=== PATIENT | male | born 1970 | race Caucasian/White ===

== ENCOUNTER 2023-07-11 08:23 | Observation (INO) | payer OTHER ==
[2023-07-11] MEDS: SODIUM CHLORIDE 0.9% 1,000 ML IV STA (08:44)
--- NOTE | 2023-07-11 08:46 | ED ---
General Adult HPI - General Chief complaint: Shortness of Breath Stated complaint: [place] Time Seen by Provider: 07/11/23 08:25 Source: patient, RN notes reviewed Mode of arrival: ambulatory Limitations: no limitations - History of Present Illness Initial comments: 52-year-old male presents emergency department via EMS from [facility] chief complaint shortness of breath. Patient has been exposed to multiple sick contacts. Patient states he does have COPD. Patient states has been wheezing, is having shortness of breath he has not take anything recent for his fever. Patient denies any nausea vomiting. He states his body aches are diffuse. Denies any similar cardiac history. Patient states he has been at [facility] for 1 week for opiate abuse. - Related Data Allergies Allergy/AdvReac Type Severity Reaction Status Date / Time Penicillins AdvReac Rash/Hives Verified 07/11/23 08:32 Review of Systems ROS Statement: Those systems with pertinent positive or pertinent negative responses have been documented in the HPI. ROS Other: All systems not noted in ROS Statement are negative. Past Medical History Past Medical History: Asthma Additional Past Medical History / Comment(s): COPD, History of Any Multi-Drug Resistant Organisms: None Reported Past Surgical History: No Surgical Hx Reported Past Psychological History: Anxiety, Bipolar, Depression Smoking Status: Current every day smoker Past Alcohol Use History: None Reported Past Drug Use History: Cocaine, Opiates General Exam Limitations: no limitations General appearance: alert, in no apparent distress Head exam: Present: atraumatic, normocephalic, normal inspection Eye exam: Present: normal appearance, PERRL, EOMI. Absent: scleral icterus, conjunctival injection, periorbital swelling ENT exam: Present: normal exam, normal oropharynx, mucous membranes moist Neck exam: Present: normal inspection, full ROM. Absent: tenderness, meningismus, lymphadenopathy Respiratory exam: Present: wheezes. Absent: normal lung sounds bilaterally, respiratory distress, rales, rhonchi, stridor Cardiovascular Exam: Present: regular rate, normal rhythm, normal heart sounds. Absent: systolic murmur, diastolic murmur, rubs, gallop, clicks GI/Abdominal exam: Present: soft, normal bowel sounds. Absent: distended, tend erness, guarding, rebound, rigid Neurological exam: Present: alert Skin exam: Present: warm, dry, intact, normal color. Absent: rash Course Vital Signs 07/11/23 07/11/23 07/11/23 08:25 08:35 09:52 Temperature 100.7 F H 98.9 F Pulse Rate 100 87 Respiratory 20 20 18 Rate Blood Pressure 121/78 117/66 O2 Sat by Pulse 91 L 90 L Oximetry EKG Findings - EKG Comments: EKG Findings:: EKG performed at 8: 27 sinus rhythm with rate 96 MS 120 QRS 83 QT/QTc 329/383 - EKG Results: EKG: interpreted by MARY Medical Decision Making - Medical Decision Making Was pt. sent in by a medical professional or institution (, PA, PHARMACOGENETICIST, urgent care, hospital, or prison...) When possible be specific @ -No Did you speak to anyone other than the patient for history (EMS, parent, family, police, friend...)? What history was obtained from this source @ -No Did you review nursing and triage notes (agree or disagree)? Why? @ -I reviewed and agree with nursing and triage notes Were old charts reviewed (outside hosp., previous admission, EMS record, old EKG, old radiological studies, urgent care reports/EKG's, prison records)? Report findings @ -No old charts were reviewed Differential Diagnosis (chest pain, altered mental status, abdominal pain women, abdominal pain men, vaginal bleeding, weakness, fever, dyspnea, syncope, headache, dizziness, GI bleed, back pain, seizure, CVA, palpatations, mental health, musculoskeletal)? @ -Differential Dyspnea: Coronary syndrome, arrhythmia, tamponade, asthma, COPD, pulmonary embolism, pneumonia, pneumothorax, pulmonary effusion, anaphylaxis, diabetic ketoacidosis, flailed chest, pulmonary contusion, diaphragmatic rupture, anemia, neuromuscular, this is not meant to be an all-inclusive list. COVID 19, RSV, influenza, pneumonia, acute bronchitis, URI, this list is not all inclusive EKG interpreted by me (3pts min.). @ -As above X-rays interpreted by me (1pt min.). @ -Chest x-ray shows multifocal pneumonia CT interpreted by me (1pt min.). @ -None done U/S interpreted by me (1pt. min.). @ -None done What testing was considered but not performed or refused? (CT, X-rays, U/S, labs)? Why? @ -None What meds were considered but not given or refused? Why? @ -None Did you discuss the management of the patient with other professionals (professionals i.e. , PA, PHARMACOGENETICIST, lab, RT, psych nurse, social service assistant, doper operator, teacher, ambulance officer, director of casework)? Give summary @ - for admission secondary to COPD exacerbation, hypoxia influenza a positive with multifocal viral pneumonia Was smoking cessation discussed for >3mins.? @ -No Was critical care preformed (if so, how long)? @ -No Were there social determinants of health that impacted care today? How? (Homel essness, low income, unemployed, alcoholism, drug addiction, transportation, low edu. Level, literacy, decrease access to med. care, penitentiary, rehab)? @ -No Was there de-escalation of care discussed even if they declined (Discuss DNR or withdrawal of care, Hospice)? DNR status @ -No What co-morbidities impacted this encounter? (DM, HTN, Smoking, COPD, CAD, Cancer, CVA, ARF, Chemo, Hep., AIDS, mental health diagnosis, sleep apnea, morbid obesity)? @ -COPD, asthma Was patient admitted / discharged? Hospital course, mention meds given and route, prescriptions, significant lab abnormalities, going to OR and other pertinent info. @ -Admitted patient is found to be influenza A positive multifocal pneumonia patient was started on Tamiflu, patient was given Solu-Medrol, DuoNeb treatments. Patient will be admitted for further treatment. Undiagnosed new problem with uncertain prognosis? @ -No Drug Therapy requiring intensive monitoring for toxicity (Heparin, Nitro, Insulin, Cardizem)? @ -No Were any procedures done? @ -No Diagnosis/symptom? @ -COPD exacerbation, influenza A positive Acute, or Chronic, or Acute on Chronic? @ -Acute Uncomplicated (without systemic symptoms) or Complicated (systemic symptoms)? @ -Complicated Side effects of treatment? @ -No Exacerbation, Progression, or Severe Exacerbation? @ -No Poses a threat to life or bodily function? How? (Chest pain, [place], [place], pneumonia, PE, COPD, DKA, ARF, appy, cholecystitis, CVA, Diverticulitis, Homicidal, Suicidal, threat to staff... and all critical care pts) @ -Yes COPD exacerbation, possible leading to respiratory failure - Lab Data Result diagrams: 07/11/23 08:43 07/11/23 08:43 Lab Results 07/11/23 07/11/23 07/11/23 Range/Units 08:43 08:43 08:43 WBC 4.9 (3.8-10.6) k/uL RBC 4.10 L (4.30-5.90) m/uL Hgb 12.9 L (13.0-17.5) gm/dL Hct 38.2 L (39.0-53.0) % MCV 93.4 (80.0-100.0) fL MCH 31.4 (25.0-35.0) pg MCHC 33.6 (31.0-37.0) g/dL RDW 14.3 (11.5-15.5) % Plt Count 152 (150-450) k/uL MPV 9.3 Sodium 129 L (137-145) mmol/L Potassium 4.2 (3.5-5.1) mmol/L Chloride 99 (98-107) mmol/L Carbon Dioxide 21 L (22-30) mmol/L Anion Gap 9 mmol/L BUN 17 (9-20) mg/dL Creatinine 0.48 L (0.66-1.25) mg/dL Est GFR (CKD-EPI)AfAm >90 (>60 ml/min/1.73 sqM) Est GFR (CKD-EPI)NonAf >90 (>60 ml/min/1.73 sqM) Glucose 123 H (74-99) mg/dL Calcium 8.2 L (8.4-10.2) mg/dL Total Bilirubin 1.2 (0.2-1.3) mg/dL AST 79 H (17-59) U/L ALT 223 H (4-49) U/L Alkaline Phosphatase 94 (38-126) U/L Total Protein 6.2 L (6.3-8.2) g/dL Albumin 3.2 L (3.5-5.0) g/dL Influenza Type A (PCR) Detected A (Not Detectd) Influenza Type B (PCR) Not Detected (Not Detectd) RSV (PCR) Not Detected (Not Detectd) SARS-CoV-2 (PCR) Not Detected (Not Detectd) Disposition Clinical Impression: COPD with acute exacerbation, Influenza A Disposition: ADMITTED IP TO THIS HOSP Condition: Fair Referrals: None,Stated [Primary Care Provider] - 1-2 days Time of Disposition: 10:13
[2023-07-11] MEDS: ACETAMINOPHEN TAB 500 MG TAB PO STA (08:47)
[2023-07-11] MEDS: methylPREDNISolone SOD SUCCI 125 MG/2 ML VIAL IV STA (08:47)
[2023-07-11 08:53] LABS: HCT 38.2 % (39.0-53.0); HGB 12.9 gm/dL (13.0-17.5); MCH 31.4 pg (25.0-35.0); MCHC 33.6 g/dL (31.0-37.0); MCV 93.4 fL (80.0-100.0); Mean Platelet Volume 9.3; Platelet Count 152 k/uL (150-450); RDW 14.3 % (11.5-15.5); WBC 4.9 k/uL (3.8-10.6)
[2023-07-11 09:06] LABS: ALT 223 U/L (4-49); AST 79 U/L (17-59); African American GFR (CKD) >90 (>60 ml/min/1.73 sqM); Albumin 3.2 g/dL (3.5-5.0); Alkaline Phosphatase 94 U/L (38-126); Anion Gap 9 mmol/L; Blood Urea Nitrogen 17 mg/dL (9-20); Calcium 8.2 mg/dL (8.4-10.2); Carbon Dioxide 21 mmol/L (22-30); Chloride 99 mmol/L (98-107); Glucose 123 mg/dL (74-99); Non-African American GFR(CKD) >90 (>60 ml/min/1.73 sqM); Potassium 4.2 mmol/L (3.5-5.1); Sodium 129 mmol/L (137-145); Total Bilirubin 1.2 mg/dL (0.2-1.3); Total Protein 6.2 g/dL (6.3-8.2)
--- NOTE | 2023-07-11 09:54 | XR ---
EXAMINATION TYPE: XR chest 2V DATE OF EXAM: 07/11/2023 9:26 AM CLINICAL INDICATION:Male, 52 years old with history of difficulty breathing; PH[facility] COMPARISON: None TECHNIQUE: XR chest 2V. Frontal and lateral views of the chest.. FINDINGS: Lines/Tubes/Devices: EKG leads and other extraneous densities overlie the chest. Heart/mediastinum: Heart size is normal. Mediastinum appears normal. Pulmonary vascularity: Not increased, Lungs/Pleura: Lungs appear mildly hyperinflated with coarsening of the interstitium which may suggest background emphysema/COPD. There are multifocal patchy nodular opacities bilaterally, mostly in the mid to lower lung zones. Costophrenic angles are relatively sharp. No pneumothorax is shown. Cannot e xclude hilar lesions. Musculoskeletal: No acute osseous abnormality demonstrated in the limits of the exam. Mild degenerat antonella changes. Small rounded sclerotic focus projects over the right humeral head. Remote appearing rig ht rib mild deformity. Other findings: None. IMPRESSION: Multifocal patchy and nodular pulmonary opacities bilaterally, could represent infectious/inflammator y process and/or neoplasm. CT chest recommended.
[2023-07-11] MEDS: IPRATROPIUM-ALBUTEROL 3 ML NEB INHALATION STA (10:13)
[2023-07-11] MEDS ORDERED: IPRATROPIUM-ALBUTEROL 3 ML NEB INHALATION PRN (10:14)
[2023-07-11 10:27] LABS: Band Neutrophils % 13 %; Lymphocytes # (M) 0.34 k/uL (1.0-4.8); Metamyelocytes # (M) 0.05 k/uL (0); Metamyelocytes % 1 %; Monocytes # (M) 0.15 k/uL (0-1.0); Neutrophils % (M) 77 %; Nucleated Red Blood Cells 0 /100 WBC (0-0); Total Cells Counted 200
[2023-07-11 10:28] LABS: RBC Morphology Normal
[2023-07-11] MEDS: IPRATROPIUM-ALBUTEROL 3 ML NEB INHALATION SCH (12:13)
[2023-07-11] MEDS: OSELTAMIVIR 75 MG CAP PO STA (12:44)
[2023-07-11] MEDS ORDERED: RX INFO: IV CONTRAST WAS GIVEN 1 EACH MISC MISCELLANE PRN (14:09)
[2023-07-11] MEDS: AZITHROMYCIN 500 MG in SODIUM CHLORIDE 0.9% 250 ML IVPB SCH (14:54)
[2023-07-11] MEDS: methylPREDNISolone SOD SUCCI 125 MG/2 ML VIAL IV SCH (16:22)
--- NOTE | 2023-07-11 17:59 | P.HPIM ---
History of Present Illness H&P Date: 07/11/23 Chief Complaint: dyspnea 52-year-old male with medical history of COPD, active smoker, opiate abuse, asthma, presented for evaluation of dyspnea. Patient says that he started to experience shortness of breath approximately 3 days ago and then started develop fevers, chills as well as increased work of breathing in the last 24 hours. Patient does have a history of COPD and only takes rescue inhaler at home, does not follow with a telephone operator receptionist. He reports having exposure to multiple sick contacts recently. He further endorses myalgias. In the emergency room, patient was afebrile, 120/70, heart rate 80, 97% on 2 L of nasal cannula. CBC shows mild anemia to 12.9. Basic metabolic panel shows sodium of 129, CO2 of 21. Liver function test show AST of 79, ALT of 223. Influenzinum a was positive, influenza B was negative, RSV was negative, COVID was negative. EKG demonstrated normal sinus rhythm with left axis deviation, low voltage EKG. Chest x-ray demonstrates findings of diffuse pulmonary infiltrates. CT of the chest redemonstrates findings of diffuse pulmonary infiltrates. All Systems reviewed and pertinent positives and negatives noted in HPI, all other symptoms are negative Gen: in no apparent distress, resting comfortably in bed Eyes: PERRL, no scleral injection or icterus HENT: normocephalic, atraumatic, good hearing acuity, moist mucous membranes Neck: no tracheal deviation, full range of motion Resp: good air exchange, breathing comfortably with no accessory muscle use, no tactile fremitus, diffuse wheezing CVS: good distal perfusion x 4, no pitting edema GI: soft, NTTP, ND, no hepatosplenomegaly : no suprapubic tenderness, no CVAT, licea catheter not present MSK: no clubbing, no cyanosis, no noted contractures of extremities Skin: no noted rashes, petechiae; temperature of skin is appropriate Neuro: moving all extremities without signs of weakness, CN II-XII intact Psych: cooperative, euthymic mood, insight and judgment intact Labs and imaging as above Assessment/plan: Acute Hypoxemic Respiratory Failure Asthma/COPD Exacerbation Influenza A -admit to observation -pulmonology consult -rogersbs QID + PRN -tamiflu -solumedrol Opiate Abuse -encourage patient to have his suboxone from home brought in Active Smoker -nicotine lozenges PRN Pt is Full Code Past Medical History Past Medical History: Asthma Additional Past Medical History / Comment(s): COPD, History of Any Multi-Drug Resistant Organisms: None Reported Past Surgical History: No Surgical Hx Reported Past Psychological History: Anxiety, Bipolar, Depression Smoking Status: Current every day smoker Past Alcohol Use History: None Reported Past Drug Use History: Cocaine, Opiates Medications and Allergies Home Medications Medication Instructions Recorded Confirmed Type Acetaminophen Tab [Tylenol] 650 mg PO Q4H PRN 07/11/23 07/11/23 History Albuterol Sulfate [Ventolin HFA] 2 puff INHALATION RT-QID PRN 07/11/23 07/11/23 History Buprenorphine HCl/Naloxone HCl 1 film SL BID 07/11/23 07/11/23 History [Suboxone 8 mg-2 mg Sl Film] Calcium/Magnesium/Zinc/Vitamin D 1 tab PO TID PRN 07/11/23 07/11/23 History Chlorpheniramine Maleate 4 mg PO Q4H PRN 07/11/23 07/11/23 History [Chlor-Trimeton] Docusate [Colace] 100 mg PO BID PRN 07/11/23 07/11/23 History Hyoscyamine Sulfate [Levsin] 0.125 mg PO QID PRN 07/11/23 07/11/23 History Ibuprofen [Motrin Ib] 600 mg PO Q6H PRN 07/11/23 07/11/23 History Loperamide HCl [Imodium A-D] 4 mg PO QID PRN 07/11/23 07/11/23 History Mag Hydrox/Aluminum Hyd/Simeth 30 ml PO Q4H PRN 07/11/23 07/11/23 History [Mylanta Maximum Strength Liq] Magnesium Hydroxide [Milk of 2,400 mg PO BID PRN 07/11/23 07/11/23 History Magnesia] Melatonin 10 mg PO HS 07/11/23 07/11/23 History Multivitamins, Thera [Multivitamin 1 tab PO DAILY 07/11/23 07/11/23 History (formulary)] Thiamine [Vitamin B-1] 100 mg PO DAILY 07/11/23 07/11/23 History cloNIDine HCL [Catapres] 0.1 mg PO Q4H PRN 07/11/23 07/11/23 History guaiFENesin [guaiFENesin Oral 10 mg PO Q4H PRN 07/11/23 07/11/23 History Solution] ondansetron HCL [Zofran] 8 mg PO Q6H PRN 07/11/23 07/11/23 History traZODone HCL [Desyrel] 50 - 150 mg PO HS PRN 07/11/23 07/11/23 History Allergies Allergy/AdvReac Type Severity Reaction Status Date / Time Penicillins AdvReac Rash/Hives Verified 07/11/23 11:21 Physical Exam Osteopathic Statement: *. No significant issues noted on an osteopathic structural exam other than those noted in the History and Physical/Consult. Vitals: Vital Signs Temp Pulse Resp BP Pulse Ox 07/11/23 16:23 98.4 F 80 18 120/70 97 07/11/23 16:16 80 07/11/23 16:06 78 07/11/23 14:00 65 20 115/73 97 07/11/23 13:00 77 16 119/69 97 07/11/23 12:39 98.6 F 82 18 112/65 96 07/11/23 12:22 73 07/11/23 12:13 77 97 07/11/23 10:25 80 07/11/23 10:14 76 07/11/23 09:52 98.9 F 87 18 117/66 90 L 07/11/23 08:35 20 07/11/23 08:25 100.7 F H 100 20 121/78 91 L Intake and Output 07/11/23 07/11/23 07/11/23 06:59 14:59 22:59 Other: Weight 63.503 kg Results CBC & Chem 7: 07/11/23 08:43 07/11/23 08:43 Labs: Abnormal Lab Results - Last 24 Hours (Table) 07/11/23 07/11/23 07/11/23 Range/Units 08:43 08:43 08:43 RBC 4.10 L (4.30-5.90) m/uL Hgb 12.9 L (13.0-17.5) gm/dL Hct 38.2 L (39.0-53.0) % Lymphocytes # (Manual) 0.34 L (1.0-4.8) k/uL Metamyelocytes # (Man) 0.05 H (0) k/uL Sodium 129 L (137-145) mmol/L Carbon Dioxide 21 L (22-30) mmol/L Creatinine 0.48 L (0.66-1.25) mg/dL Glucose 123 H (74-99) mg/dL Calcium 8.2 L (8.4-10.2) mg/dL AST 79 H (17-59) U/L ALT 223 H (4-49) U/L Total Protein 6.2 L (6.3-8.2) g/dL Albumin 3.2 L (3.5-5.0) g/dL Influenza Type A (PCR) Detected A (Not Detectd)
--- NOTE | 2023-07-11 19:01 | CT ---
EXAMINATION TYPE: CT chest w con DATE OF EXAM: 07/11/2023 HISTORY: pneumonia, dyspnea CT DLP: 234.8 mGycm. Automated Exposure Control for Dose Reduction was Utilized. TECHNIQUE: CT scan of the thorax is performed following with IV Contrast, patient injected with 100 ml mL of Isovue 300. COMPARISON: CXR 07/11/2023 FINDINGS: LUNGS: There are dense bilateral consolidative opacities with air bronchograms in the posterior upper , mid, and lower lung zones consistent with focal pneumonia. MEDIASTINUM: Bilateral hilar and subcarinal mild adenopathy is noted, likely due to the multifocal bi lateral bronchopneumonia pattern. Thyroid and esophagus are unremarkable. Moderately prominent left and right coronary calcifications noted. No cardiomegaly or pericardial eff usion. MUSCULOSKELETAL: No focal aggressive skeletal process. SUBDIAPHRAGMATIC STRUCTURES: Mild splenomegaly noted. IMPRESSION: Multifocal bronchopneumonia; recommend 12 week follow-up CT Chest with contrast to prove resolution o f the findings. Prominent coronary calcifications. Mild splenomegaly noted.
[2023-07-11] MEDS: BUPRENORPHINE-NALOX 8-2 MG TAB 1 EACH TAB.SUBL SL SCH (20:42)
[2023-07-11] MEDS ORDERED: VANCOMYCIN IV PER PHARMACY 1 EACH MISC MISCELLANE PRN (22:07)
--- NOTE | 2023-07-11 22:27 | P.CNPUL ---
History of Present Illness Consult date: 07/11/23 Reason for consult: hypoxemia, pneumonia History of present illness: This is a 52-year-old male patient who came from [place] for some cough and shortness of breath and acute hypoxic respiratory failure. Patient was diagnosed having an acute influenza A infection. The patient lives in [place] and he has chronic opiate addiction with IV heroin and fentanyl. He was at [facility] for the past 7 days undergoing detoxification he was being treated with Suboxone 8 mg twice a day. The patient started getting ill, had diffuse bodyaches and chills and fatigue and tiredness and headaches along with some cough and increased shortness of breath. He is also felt feverish and he was reporting a temperature. He has multiple sick contacts at the rehab facility. He came into the emergency department and the patient tested positive for i nfluenza A, influenza B RSV and COVID-19 were negative. Blood work showed a white cell count of 4.9 and a hemoglobin of 12.9 and a platelet count of 152. Sodium is at 129, BUN is 17 with a creatinine of 0.48. Glucose 123. AST is 79, ALT is 223, bilirubin is 1.2. The CAT scan of the chest was completed and the patient has lower lobe bilateral consolidations consistent with pneumonia. In addition, there is mild bilateral hilar and subcarinal lymphadenopathy. Noted the consolidation are present in the posterior segments of the lower lobes bilaterally. The patient denies having any episodes of aspiration. No history of alcoholism. He is a chronic smoker. No altered mentation. Concerned that he is going to withdrawal from opiates during his current hospital stay. At the time of my evaluation, the patient was alert and awake and communicating. Review of Systems Constitutional: Reports fatigue, Reports fever, Reports weakness Eyes: denies as per HPI, denies blurred vision, denies bulging eye, denies decreased vision, denies diplopia, denies discharge, denies dry eye, denies irritation, denies itching, denies pain, denies photophobia, denies loss of peripheral vision, denies loss of vision, denies tunnel vision/blind spots Ears: deny: decreased hearing, ear discharge, earache, tinnitus Ears, nose, mouth and throat: Reports as per HPI Breasts: absent: as per HPI, gynecomastia Cardiovascular: Reports dyspnea on exertion Respiratory: Reports cough, Reports dyspnea Gastrointestinal: Reports as per HPI Genitourinary: Reports as per HPI Musculoskeletal: Reports as per HPI Musculoskeletal: absent: ankle pain, ankle stiffness, ankle swelling Integumentary: Reports as per HPI Neurological: Reports as per HPI Psychiatric: Reports as per HPI Endocrine: Reports as per HPI Hematologic/Lymphatic: Reports as per HPI Allergic/Immunologic: Reports as per HPI Past Medical History Past Medical History: Asthma Additional Past Medical History / Comment(s): COPD, History of Any Multi-Drug Resistant Organisms: None Reported Past Surgical History: No Surgical Hx Reported Past Psychological History: Anxiety, Bipolar, Depression Smoking Status: Current every day smoker Past Alcohol Use History: None Reported Past Drug Use History: Cocaine, Opiates Medications and Allergies Home Medications Medication Instructions Recorded Confirmed Type Acetaminophen Tab [Tylenol] 650 mg PO Q4H PRN 07/11/23 07/11/23 History Albuterol Sulfate [Ventolin HFA] 2 puff INHALATION RT-QID PRN 07/11/23 07/11/23 History Buprenorphine HCl/Naloxone HCl 1 film SL BID 07/11/23 07/11/23 History [Suboxone 8 mg-2 mg Sl Film] Calcium/Magnesium/Zinc/Vitamin D 1 tab PO TID PRN 07/11/23 07/11/23 History Chlorpheniramine Maleate 4 mg PO Q4H PRN 07/11/23 07/11/23 History [Chlor-Trimeton] Docusate [Colace] 100 mg PO BID PRN 07/11/23 07/11/23 History Hyoscyamine Sulfate [Levsin] 0.125 mg PO QID PRN 07/11/23 07/11/23 History Ibuprofen [Motrin Ib] 600 mg PO Q6H PRN 07/11/23 07/11/23 History Loperamide HCl [Imodium A-D] 4 mg PO QID PRN 07/11/23 07/11/23 History Mag Hydrox/Aluminum Hyd/Simeth 30 ml PO Q4H PRN 07/11/23 07/11/23 History [Mylanta Maximum Strength Liq] Magnesium Hydroxide [Milk of 2,400 mg PO BID PRN 07/11/23 07/11/23 History Magnesia] Melatonin 10 mg PO HS 07/11/23 07/11/23 History Multivitamins, Thera [Multivitamin 1 tab PO DAILY 07/11/23 07/11/23 History (formulary)] Thiamine [Vitamin B-1] 100 mg PO DAILY 07/11/23 07/11/23 History cloNIDine HCL [Catapres] 0.1 mg PO Q4H PRN 07/11/23 07/11/23 History guaiFENesin [guaiFENesin Oral 10 mg PO Q4H PRN 07/11/23 07/11/23 History Solution] ondansetron HCL [Zofran] 8 mg PO Q6H PRN 07/11/23 07/11/23 History traZODone HCL [Desyrel] 50 - 150 mg PO HS PRN 07/11/23 07/11/23 History Allergies Allergy/AdvReac Type Severity Reaction Status Date / Time Penicillins AdvReac Rash/Hives Verified 07/11/23 11:21 Physical Exam Vitals: Vital Signs Temp Pulse Resp BP Pulse Ox 07/11/23 19:46 88 07/11/23 19:39 85 07/11/23 18:30 85 18 112/72 98 07/11/23 18:22 82 22 108/68 96 07/11/23 16:23 98.4 F 80 18 120/70 97 07/11/23 16:16 80 07/11/23 16:06 78 07/11/23 14:00 65 20 115/73 97 07/11/23 13:00 77 16 119/69 97 07/11/23 12:39 98.6 F 82 18 112/65 96 07/11/23 12:22 73 07/11/23 12:13 77 97 07/11/23 10:25 80 07/11/23 10:14 76 07/11/23 09:52 98.9 F 87 18 117/66 90 L 07/11/23 08:35 20 07/11/23 08:25 100.7 F H 100 20 121/78 91 L Intake and Output 07/11/23 07/11/23 07/11/23 06:59 14:59 22:59 Other: Weight 63.503 kg The patient appeared well nourished and normally developed. The patient is currently on 3 L of oxygen nasal cannula. Breathing is calm and comfortable and the patient's breathing is nonlabored at this point in time. Vital signs as documented. Head exam is unremarkable. No scleral icterus or corneal arcus noted. Neck is without jugular venous distension, thyromegaly, or carotid bruits. Carotid upstrokes are brisk bilaterally. Lungs are clear to auscultation and percussion. Cardiac exam reveals the PMI to be normally sized and situated. Rhythm is regular. First and second heart sounds normal. No murmurs, rubs or gallops. Abdominal exam reveals normal bowel sounds, no masses, no organomegaly and no aortic enlargement. Extremities are nonedematous and both femoral and pedal pulses are normal. Examination of the skin revealed no evidence of significant rashes, suspicious appearing nevi or other concerning lesions. Neurologically, the patient is awake and alert and the patient does not have any focal neurological deficit. Cranial nerves are essentially intact. Results - Laboratory Findings CBC and BMP: 07/11/23 08:43 07/11/23 08:43 Abnormal lab findings: Abnormal Labs 07/11/23 07/11/23 07/11/23 08:43 08:43 08:43 RBC 4.10 L Hgb 12.9 L Hct 38.2 L Lymphocytes # (Manual) 0.34 L Metamyelocytes # (Man) 0.05 H Sodium 129 L Carbon Dioxide 21 L Creatinine 0.48 L Glucose 123 H Calcium 8.2 L AST 79 H ALT 223 H Total Protein 6.2 L Albumin 3.2 L Influenza Type A (PCR) Detected A - Diagnostic Findings Chest x-ray: image reviewed CT scan - chest: image reviewed Assessment and Plan Plan: Acute influenza A infection with possible viral pneumonia secondary influenza. The patient has lower lobe posterior segment bilateral pulmonary consolidation. Superinfection with bacterial pneumonia and/or aspiration cannot be completely ruled out. Patient checked positive for influenza A. Started on Tamiflu. S ymptoms started approximately 3 to 4 days ago. Acute hypoxic respiratory failure currently on 3 L of oxygen by nasal cannula Opiate addiction in the form of heroin and fentanyl, undergoing rehabilitation at [place] Chronic smoker Abnormal LFTs with elevation in ALT and to lesser extent AST. Normal bilirubin. Plan Titrate oxygen flow to maintain saturation above 90%. Continue Tamiflu Continue Rocephin and Zithromax DuoNeb updrafts Continue Suboxone 8 mg twice a day IV fluids Check hepatitis profile due to his previous history of IVDA and abnormal LFTs Will follow
[2023-07-11] MEDS: VANCOMYCIN 1,250 MG in SODIUM CHLORIDE 0.9% 250 ML IVPB STA (23:18)
[2023-07-11] MEDS: OSELTAMIVIR 75 MG CAP PO SCH (23:51)
[2023-07-12] MEDS: ACETAMINOPHEN TAB 325 MG TAB PO PRN (02:27)
[2023-07-12] MEDS: VANCOMYCIN 1,250 MG in SODIUM CHLORIDE 0.9% 250 ML IVPB SCH (07:04)
[2023-07-12 11:48] LABS: HCT 33.1 % (39.6-50.0); MCH 30.1 pg (27.0-32.0); MCHC 33.2 g/dL (32.0-37.0); MCV 90.7 FL (80.0-97.0); Mean Platelet Volume 12.4 FL (9.5-12.2); NRBC Per 100 WBC 0 X 10*3/uL (0.00-0.01); Platelet Count 152 X 10*3/uL (140-440); RBC 3.65 X 10*6/uL (4.40-5.60); RDW 15.6 % (11.5-14.5)
[2023-07-12 12:05] LABS: Blood Urea Nitrogen 17.1 mg/dL (9.0-27.0); Calcium 8.3 mg/dL (8.7-10.3); Carbon Dioxide 22.3 mmol/L (21.6-31.8); Chloride 99 mmol/L (96-109); Glucose 136 mg/dL (70-110); Magnesium 1.9 mg/dL (1.5-2.4); Potassium 4.5 mmol/L (3.5-5.5); Sodium 132 mmol/L (135-145)
--- NOTE | 2023-07-12 12:16 | XR ---
EXAMINATION TYPE: XR chest 1V DATE OF EXAM: 07/12/2023 12:03 PM CLINICAL INDICATION:Male, 52 years old with history of pneumonia; [facility] COMPARISON: Chest radiographs from 07/11/2023. TECHNIQUE: XR chest 1V Frontal view of the chest. FINDINGS: Lungs/Pleura: Similar multifocal airspace opacities. No evidence of pneumothorax or pleural effusion. Pulmonary vascularity: Unremarkable. Heart/mediastinum: Cardiomediastinal silhouette is unremarkable. Musculoskeletal: No acute osseous pathology. IMPRESSION: Similar multifocal airspace opacities.
[2023-07-12 12:40] LABS: Basophils # (A) 0.02 X 10*3/uL (0.00-0.10); Basophils % (A) 0.5 %; Eosinophils # (A) 0 X 10*3/uL (0.04-0.35); Eosinophils % (A) 0 %; Lymphocytes # (A) 0.25 X 10*3/uL (0.90-5.00); Lymphocytes % (A) 5.7 %; Monocytes # (A) 0.24 X 10*3/uL (0.20-1.00); Monocytes % (A) 5.5 %; Neutrophils # (A) 3.87 X 10*3/uL (1.80-7.70); Neutrophils % (A) 87.8 %; RBC Morphology Normal (Normal)
--- NOTE | 2023-07-12 14:31 | P.PN ---
Subjective Progress Note Date: 07/12/23 No new complaints today. Breathing is improved. Gen: in no apparent distress, resting comfortably in bed Eyes: PERRL, no scleral injection or icterus HENT: normocephalic, atraumatic, good hearing acuity, moist mucous membranes Neck: no tracheal deviation, full range of motion Resp: good air exchange, breathing comfortably with no accessory muscle use, no tactile fremitus, diffuse wheezing CVS: good distal perfusion x 4, no pitting edema GI: soft, NTTP, ND, no hepatosplenomegaly : no suprapubic tenderness, no CVAT, licea catheter not present MSK: no clubbing, no cyanosis, no noted contractures of extremities Skin: no noted rashes, petechiae; temperature of skin is appropriate Neuro: moving all extremities without signs of weakness, CN II-XII intact Psych: cooperative, euthymic mood, insight and judgment intact Hospital Course: 52-year-old male with medical history of COPD, active smoker, opiate abuse, asthma, presented for evaluation of dyspnea. In the emergency room, patient was afebrile, 120/70, heart rate 80, 97% on 2 L of nasal cannula. CBC shows mild anemia to 12.9. Basic metabolic panel shows sodium of 129, CO2 of 21. Liver function test show AST of 79, ALT of 223. Influenzinum a was positive, influenza B was negative, RSV was negative, COVID was negative. EKG demonstrated normal sinus rhythm with left axis deviation, low voltage EKG. Chest x-ray demonstrates findings of diffuse pulmonary infiltrates. CT of the chest redemonstrates findings of diffuse pulmonary infiltrates. Assessment/plan: Acute Hypoxemic Respiratory Failure Asthma/COPD Exacerbation Influenza A -admit to observation -pulmonology consult -rogersbs QID + PRN -tamiflu -solumedrol -ceftriaxone/azithromycin/vancomycin Opiate Abuse -encourage patient to have his suboxone from home brought in -HIV, hepatitis panel pending Active Smoker -nicotine lozenges PRN Pt is Full Code Objective - Vital Signs Vital signs: Vital Signs Temp 98.0 F 07/12/23 13:41 Pulse 91 07/12/23 13:41 Resp 18 07/12/23 13:41 BP 118/65 07/12/23 13:41 Pulse Ox 98 07/12/23 13:41 FiO2 Intake & Output 07/11/23 07/12/23 07/12/23 18:59 06:59 18:59 Intake Total 480 1300 Balance 480 1300 Weight 63.503 kg 63.503 kg Intake: Oral 480 1300 Other: # Voids 3 4 - Labs CBC & Chem 7: 07/12/23 06:49 07/12/23 06:49 Labs: Abnormal Lab Results - Last 24 Hours (Table) 07/11/23 07/12/23 07/12/23 Range/Units 08:43 06:49 06:49 WBC 4.40 L (4.50-10.00) X 10*3/uL RBC 3.65 L (4.40-5.60) X 10*6/uL Hgb 11.0 L (13.0-17.0) g/dL Hct 33.1 L (39.6-50.0) % RDW 15.6 H (11.5-14.5) % MPV 12.4 H (9.5-12.2) FL Lymphocytes # 0.25 L (0.90-5.00) X 10*3/uL Eosinophils # 0 L (0.04-0.35) X 10*3/uL Sodium 132 L (135-145) mmol/L Creatinine 0.5 L (0.6-1.5) mg/dL BUN/Creatinine Ratio 34.20 H (12.00-20.00) Ratio Glucose 136 H (70-110) mg/dL Calcium 8.3 L (8.7-10.3) mg/dL Procalcitonin 9.52 H (0.02-0.09) ng/mL
--- NOTE | 2023-07-12 16:23 | P.PN ---
Subjective Progress Note Date: 07/12/23 This is a 52-year-old male patient who came from [place] for some cough and shortness of breath and acute hypoxic respiratory failure. Patient was diagnosed having an acute influenza A infection. The patient lives in [place] and he has chronic opiate addiction with IV heroin and fentanyl. He was at [facility] for the past 7 days undergoing detoxification he was being treated with Suboxone 8 mg twice a day. The patient started getting ill, had diffuse bodyaches and chills and fatigue and tiredness and headaches along with some cough and increased shortness of breath. He is also felt feverish and he was reporting a temperature. He has multiple sick contacts at the rehab facility. He came into the emergency department and the patient tested positive for influenza A, influenza B RSV and COVID-19 were negative. Blood work showed a white cell count of 4.9 and a hemoglobin of 12.9 and a platelet count of 152. Sodium is at 129, BUN is 17 with a creatinine of 0.48. Glucose 123. AST is 79, ALT is 223, bilirubin is 1.2. The CAT scan of the chest was completed and the patient has lower lobe bilateral consolidations consistent with pneumonia. In addition, there is mild bilateral hilar and subcarinal lymphadenopathy. Noted the consolidation are present in the posterior segments of the lower lobes bilaterally. The patient denies having any episodes of aspiration. No history of alcoholism. He is a chronic smoker. No altered mentation. Concerned that he is going to withdrawal from opiates during his current hospital stay. At the time of my evaluation, the patient was alert and awake and communicating. On today's evaluation of 07/12/2023, the patient is being seen for a follow-up. The patient has extensive bilateral lower lobe pneumonia. Repeat chest x-ray was done and the patient was found to have similar findings of bilateral patchy airspace disease more so in the lower lobes bilaterally involving the posterior segments. His procalcitonin level was elevated at 9.5. Patient currently on Rocephin and Zithromax. Legionella urine antigen was sent. White cell count of 4.4 with a hemoglobin of 11 and a platelet count of 152. Rest of electrolytes are all stable. The patient remains on 2 L of oxygen by nasal cannula and his pulse ox is in order of 98%. He has a congested cough. The sputum sample will be collected today. Objective - Vital Signs Vital signs: Vital Signs Temp 98.1 F 07/12/23 07:16 Pulse 84 07/12/23 08:53 Resp 18 07/12/23 07:16 BP 115/72 07/12/23 07:16 Pulse Ox 97 07/12/23 08:35 FiO2 Intake & Output 07/11/23 07/12/23 07/12/23 18:59 06:59 18:59 Intake Total 480 1300 Balance 480 1300 Weight 63.503 kg 63.503 kg Intake: Oral 480 1300 Other: # Voids 3 4 - Exam The patient appeared well nourished and normally developed. The patient is currently on 3 L of oxygen nasal cannula. Breathing is calm and comfortable and the patient's breathing is nonlabored at this point in time. Vital signs as documented. Head exam is unremarkable. No scleral icterus or corneal arcus noted. Neck is without jugular venous distension, thyromegaly, or carotid bruits. Carotid upstrokes are brisk bilaterally. Lungs are clear to auscultation and percussion. Cardiac exam reveals the PMI to be normally sized and situated. Rhythm is regular. First and second heart sounds normal. No murmurs, rubs or gallops. Abdominal exam reveals normal bowel sounds, no masses, no organomegaly and no aortic enlargement. Extremities are nonedematous and both femoral and pedal pulses are normal. Examination of the skin revealed no evidence of significant rashes, suspicious appearing nevi or other concerning lesions. Neurologically, the patient is awake and alert and the patient does not have any focal neurological deficit. Cranial nerves are essentially intact. - Labs CBC & Chem 7: 07/12/23 06:49 07/12/23 06:49 Labs: Abnormal Lab Results - Last 24 Hours (Table) 07/11/23 Range/Units 08:43 Procalcitonin 9.52 H (0.02-0.09) ng/mL Assessment and Plan Plan: Acute influenza A infection with possible viral pneumonia secondary influenza. The patient has lower lobe posterior segment bilateral pulmonary consolidation. Superinfection with bacterial pneumonia and/or aspiration cannot be completely ruled out. Patient checked positive for influenza A. Started on Tamiflu. Symptoms started approximately 3 to 4 days ago. Bilateral lower lobe pneumonia, likely bacterial on top of his viral infection. The patient is currently on Rocephin and Zithromax. He has history of IVDA. He was undergoing rehabilitation at [facility]. No previous history of staph infection. Procalcitonin level is elevated. Chest x-ray findings are essentially stable. Legionella urine antigen is pending. Acute hypoxic respiratory failure currently on 3 L of oxygen by nasal cannula Opiate addiction in the form of heroin and fentanyl, undergoing rehabilitation at [facility] Chronic smoker Abnormal LFTs with elevation in ALT and to lesser extent AST. Normal bilirubin. Plan Continue same treatment for now. Titrate oxygen flow to maintain saturation above 90%. Continue Tamiflu Continue Rocephin and [facility]romax [facility] Continue Suboxone 8 mg twice a day IV fluids Check hepatitis profile due to his previous history of IVDA and abnormal LFTs Will follow
[2023-07-12 16:41] VITALS: BMI 21.9
[2023-07-12 20:55] LABS: HIV 2 AB Non-Reactive (Non-Reactive); HIV AB P24 Non-Reactive (Non-Reactive); HIV P24 AG Non-Reactive (Non-Reactive)
[2023-07-13 07:59] LABS: African American GFR (CKD) >90 (>60 ml/min/1.73 sqM); Anion Gap 7 mmol/L; Blood Urea Nitrogen 23 mg/dL (9-20); Calcium 8.1 mg/dL (8.4-10.2); Carbon Dioxide 21 mmol/L (22-30); Chloride 107 mmol/L (98-107); Glucose 150 mg/dL (74-99); Magnesium 1.9 mg/dL (1.6-2.3); Non-African American GFR(CKD) >90 (>60 ml/min/1.73 sqM); Potassium 4.1 mmol/L (3.5-5.1); Sodium 135 mmol/L (137-145)
--- NOTE | 2023-07-13 12:01 | P.PN ---
Subjective Progress Note Date: 07/13/23 No new complaints today. Breathing is improved, seen on room air during my evaluation. Gen: in no apparent distress, resting comfortably in bed Eyes: PERRL, no scleral injection or icterus HENT: normocephalic, atraumatic, good hearing acuity, moist mucous membranes Neck: no tracheal deviation, full range of motion Resp: good air exchange, breathing comfortably with no accessory muscle use, no tactile fremitus, diffuse wheezing CVS: good distal perfusion x 4, no pitting edema GI: soft, NTTP, ND, no hepatosplenomegaly : no suprapubic tenderness, no CVAT, licea catheter not present MSK: no clubbing, no cyanosis, no noted contractures of extremities Skin: no noted rashes, petechiae; temperature of skin is appropriate Neuro: moving all extremities without signs of weakness, CN II-XII intact Psych: cooperative, euthymic mood, insight and judgment intact Hospital Course: 52-year-old male with medical history of COPD, active smoker, opiate abuse, asthma, presented for evaluation of dyspnea. In the emergency room, patient was afebrile, 120/70, heart rate 80, 97% on 2 L of nasal cannula. CBC shows mild anemia to 12.9. Basic metabolic panel shows sodium of 129, CO2 of 21. Liver function test show AST of 79, ALT of 223. Influenzinum a was positive, influenza B was negative, RSV was negative, COVID was negative. EKG demonstrated normal sinus rhythm with left axis deviation, low voltage EKG. Chest x-ray demonstrates findings of diffuse pulmonary infiltrates. CT of the chest redemonstrates findings of diffuse pulmonary infiltrates. Assessment/plan: Acute Hypoxemic Respiratory Failure Asthma/COPD Exacerbation Influenza A -admit to observation -pulmonology consult -duonebs QID + PRN -tamiflu -solumedrol -ceftriaxone/azithromycin/vancomycin; MRSA nares is pending Opiate Abuse -continue suboxone -HIV is negative, hepatitis panel pending Active Smoker -nicotine lozenges PRN Pt is Full Code Objective - Vital Signs Vital signs: Vital Signs Temp 97.7 F 07/13/23 07:49 Pulse 62 07/13/23 09:21 Resp 16 07/13/23 07:49 BP 129/72 07/13/23 07:49 Pulse Ox 96 07/13/23 07:49 FiO2 Intake & Output 07/12/23 07/13/23 07/13/23 18:59 06:59 18:59 Intake Total 220 Balance 220 Weight 63.503 kg Intake: IV 40 Invasive Line 2 30 Invasive Line 3 10 Oral 180 Other: # Voids 2 2 # Bowel Movements 0 - Labs CBC & Chem 7: 07/12/23 06:49 07/13/23 07:11 Labs: Abnormal Lab Results - Last 24 Hours (Table) 07/12/23 07/12/23 07/13/23 Range/Units 06:49 06:49 07:11 Lymphocytes # 0.25 L (0.90-5.00) X 10*3/uL Eosinophils # 0 L (0.04-0.35) X 10*3/uL Sodium 132 L 135 L (135-145) mmol/L Carbon Dioxide 21 L (22-30) mmol/L BUN 23 H (9-20) mg/dL Creatinine 0.5 L 0.44 L (0.6-1.5) mg/dL BUN/Creatinine Ratio 34.20 H (12.00-20.00) Ratio Glucose 136 H 150 H (70-110) mg/dL Calcium 8.3 L 8.1 L (8.7-10.3) mg/dL Microbiology - Last 24 Hours (Table) 07/12/23 11:46 Gram Stain - Preliminary Sputum
[2023-07-13 13:44] LABS: Basophils # (A) 0.01 X 10*3/uL (0.00-0.10); Basophils % (A) 0.2 %; Eosinophils # (A) 0 X 10*3/uL (0.04-0.35); Eosinophils % (A) 0 %; HCT 32.6 % (39.6-50.0); HGB 10.9 g/dL (13.0-17.0); Lymphocytes # (A) 0.51 X 10*3/uL (0.90-5.00); Lymphocytes % (A) 10.1 %; MCH 30.9 pg (27.0-32.0); MCHC 33.4 g/dL (32.0-37.0); MCV 92.4 FL (80.0-97.0); Monocytes % (A) 5.9 %; NRBC Per 100 WBC 0 X 10*3/uL (0.00-0.01); Neutrophils # (A) 4.22 X 10*3/uL (1.80-7.70); Neutrophils % (A) 83.4 %; Platelet Count 166 X 10*3/uL (140-440); RBC 3.53 X 10*6/uL (4.40-5.60); RDW 15.9 % (11.5-14.5); WBC 5.06 X 10*3/uL (4.50-10.00)
--- NOTE | 2023-07-13 14:09 | P.PN ---
Subjective Progress Note Date: 07/13/23 This is a 52-year-old male patient who came from [place] for some cough and shortness of breath and acute hypoxic respiratory failure. Patient was diagnosed having an acute influenza A infection. The patient lives in [place] and he has chronic opiate addiction with IV heroin and fentanyl. He was at [facility] for the past 7 days undergoing detoxification he was being treated with Suboxone 8 mg twice a day. The patient started getting ill, had diffuse bodyaches and chills and fatigue and tiredness and headaches along with some cough and increased shortness of breath. He is also felt feverish and he was reporting a temperature. He has multiple sick contacts at the rehab facility. He came into the emergency department and the patient tested positive for influenza A, influenza B RSV and COVID-19 were negative. Blood work showed a white cell count of 4.9 and a hemoglobin of 12.9 and a platelet count of 152. Sodium is at 129, BUN is 17 with a creatinine of 0.48. Glucose 123. AST is 79, ALT is 223, bilirubin is 1.2. The CAT scan of the chest was completed and the patient has lower lobe bilateral consolidations consistent with pneumonia. In addition, there is mild bilateral hilar and subcarinal lymphadenopathy. Noted the consolidation are present in the posterior segments of the lower lobes bilaterally. The patient denies having any episodes of aspiration. No history of alcoholism. He is a chronic smoker. No altered mentation. Concerned that he is going to withdrawal from opiates during his current hospital stay. At the time of my evaluation, the patient was alert and awake and communicating. On today's evaluation of 07/12/2023, the patient is being seen for a follow-up. The patient has extensive bilateral lower lobe pneumonia. Repeat chest x-ray was done and the patient was found to have similar findings of bilateral patchy airspace disease more so in the lower lobes bilaterally involving the posterior segments. His procalcitonin level was elevated at 9.5. Patient currently on Rocephin and Zithromax. Legionella urine antigen was sent. White cell count of 4.4 with a hemoglobin of 11 and a platelet count of 152. Rest of electrolytes are all stable. The patient remains on 2 L of oxygen by nasal cannula and his pulse ox is in order of 98%. He has a congested cough. The sputum sample will be collected today. On today's evaluation of 07/13/2023, the patient is doing slightly better compared to yesterday. Remains on 2 L of oxygen by nasal cannula. White cell count is at 5 with a hemoglobin 10.6 and a platelet count of 166. BUN is at 23 with a creatinine of 0.4 and sodium levels at 135. The patient has no significant respiratory distress. Hemodynamically stable. Sputum has been collected and the results are still pending for now. Chest x-ray from yesterday was still showing persistent bilateral pulmonary filtrates. Objective - Vital Signs Vital signs: Vital Signs Temp 97.7 F 07/13/23 07:49 Pulse 62 07/13/23 09:21 Resp 16 07/13/23 07:49 BP 129/72 07/13/23 07:49 Pulse Ox 96 07/13/23 07:49 FiO2 Intake & Output 07/12/23 07/13/23 07/13/23 18:59 06:59 18:59 Intake Total 220 Balance 220 Weight 63.503 kg Intake: IV 40 Invasive Line 2 30 Invasive Line 3 10 Oral 180 Other: # Voids 2 2 # Bowel Movements 0 - Exam The patient appeared well nourished and normally developed. The patient is currently on 3 L of oxygen nasal cannula. Breathing is calm and comfortable and the patient's breathing is nonlabored at this point in time. Vital signs as documented. Head exam is unremarkable. No scleral icterus or corneal arcus not ed. Neck is without jugular venous distension, thyromegaly, or carotid bruits. Carotid upstrokes are brisk bilaterally. Lungs are clear to auscultation and percussion. Cardiac exam reveals the PMI to be normally sized and situated. Rhythm is regular. First and second heart sounds normal. No murmurs, rubs or gallops. Abdominal exam reveals normal bowel sounds, no masses, no organomegaly and no aortic enlargement. Extremities are nonedematous and both femoral and pedal pulses are normal. Examination of the skin revealed no evidence of significant rashes, suspicious appearing nevi or other concerning lesions. Neurologically, the patient is awake and alert and the patient does not have any focal neurological deficit. Cranial nerves are essentially intact. - Labs CBC & Chem 7: 07/13/23 07:11 07/13/23 07:11 Labs: Abnormal Lab Results - Last 24 Hours (Table) 07/12/23 07/12/23 07/13/23 Range/Units 06:49 06:49 07:11 WBC 4.40 L (4.50-10.00) X 10*3/uL RBC 3.65 L (4.40-5.60) X 10*6/uL Hgb 11.0 L (13.0-17.0) g/dL Hct 33.1 L (39.6-50.0) % RDW 15.6 H (11.5-14.5) % MPV 12.4 H (9.5-12.2) FL Lymphocytes # 0.25 L (0.90-5.00) X 10*3/uL Eosinophils # 0 L (0.04-0.35) X 10*3/uL Sodium 132 L 135 L (135-145) mmol/L Carbon Dioxide 21 L (22-30) mmol/L BUN 23 H (9-20) mg/dL Creatinine 0.5 L 0.44 L (0.6-1.5) mg/dL BUN/Creatinine Ratio 34.20 H (12.00-20.00) Ratio Glucose 136 H 150 H (70-110) mg/dL Calcium 8.3 L 8.1 L (8.7-10.3) mg/dL Microbiology - Last 24 Hours (Table) 07/12/23 11:46 Gram Stain - Preliminary Sputum Assessment and Plan Plan: Acute influenza A infection with possible viral pneumonia secondary influenza. The patient has lower lobe posterior segment bilateral pulmonary consolidation. Superinfection with bacterial pneumonia and/or aspiration cannot be completely ruled out. Patient checked positive for influenza A. Started on Tamiflu. Symptoms started approximately 3 to 4 days ago. Bilateral lower lobe pneumonia, likely bacterial on top of his viral infection. The patient is currently on Rocephin and Zithromax. He has history of IVDA. He was undergoing rehabilitation at [facility]. No previous history of staph infection. Procalcitonin level is elevated. Chest x-ray findings are essentially stable. Legionella urine antigen is pending. Acute hypoxic respiratory failure currently on 3 L of oxygen by nasal cannula Opiate addiction in the form of heroin and fentanyl, undergoing rehabilitation at [facility] Chronic smoker Abnormal LFTs with elevation in ALT and to lesser extent AST. Normal bilirubin. Plan Clinically improved compared to yesterday Awaiting the results of sputum Gram stain and culture Repeat chest x-ray in the morning Continue same treatment for now. Titrate oxygen flow to maintain saturation above 90%. Continue Tamiflu Continue [facility]in and [facility]romax [facility] Continue Suboxone 8 mg twice a day IV fluids Check hepatitis profile due to his previous history of IVDA and abnormal LFTs Will follow
[2023-07-13] MEDS: VANCOMYCIN TROUGH DUE 1 EACH MISC MISCELLANE ONE (15:26)
[2023-07-14] MEDS: BENZONATATE 100 MG CAP PO PRN (06:24)
--- NOTE | 2023-07-14 06:56 | XR ---
EXAMINATION TYPE: XR chest 1V DATE OF EXAM: 07/14/2023 COMPARISON: 07/12/2023 HISTORY: Pneumonia follow-up TECHNIQUE: Single frontal view of the chest is obtained. FINDINGS: Diffuse fluffy small airspace opacities involving predominantly the mid and lower lung zones have wor sened mildly on the right and improved mildly on the left. Heart size is normal and the pulmonary vasculature is not congested. There is no pleural effusion or pneumothorax. There is a fracture of the posterior right seventh rib otherwise the osseous structures are intact. IMPRESSION: 1. Mild worsening in the right lung opacities and mild improvement in the left lung opacities. 2. Fracture of the right seventh rib indeterminate age. 3. No pleural effusion or pneumothorax.
[2023-07-14 08:03] LABS: African American GFR (CKD) >90 (>60 ml/min/1.73 sqM); Anion Gap 11 mmol/L; Blood Urea Nitrogen 28 mg/dL (9-20); Calcium 8.2 mg/dL (8.4-10.2); Carbon Dioxide 18 mmol/L (22-30); Chloride 110 mmol/L (98-107); Glucose 122 mg/dL (74-99); Magnesium 1.9 mg/dL (1.6-2.3); Non-African American GFR(CKD) >90 (>60 ml/min/1.73 sqM); Potassium 4.5 mmol/L (3.5-5.1); Sodium 139 mmol/L (137-145)
[2023-07-14 08:39] LABS: HCT 40.6 % (39.0-53.0); HGB 13.2 gm/dL (13.0-17.5); MCH 31.6 pg (25.0-35.0); MCHC 32.5 g/dL (31.0-37.0); MCV 97.1 fL (80.0-100.0); Mean Platelet Volume 10.7; Platelet Count 201 k/uL (150-450); RBC 4.18 m/uL (4.30-5.90); RDW 14.7 % (11.5-15.5)
[2023-07-14 10:55] LABS: Band Neutrophils % 7 %; Lymphocytes # (M) 0.88 k/uL (1.0-4.8); Neutrophils % (M) 77 %; Nucleated Red Blood Cells 0 /100 WBC (0-0); Total Cells Counted 100
[2023-07-14 10:57] LABS: RBC Morphology Normal
--- NOTE | 2023-07-14 11:00 | P.PN ---
Subjective Progress Note Date: 07/14/23 No new complaints today. Breathing is improved, remains on room air. Has productive cough with brownish sputum production. Sputum Cx pending. Gen: in no apparent distress, resting comfortably in bed Eyes: PERRL, no scleral injection or icterus HENT: normocephalic, atraumatic, good hearing acuity, moist mucous membranes Neck: no tracheal deviation, full range of motion Resp: good air exchange, breathing comfortably with no accessory muscle use, no tactile fremitus, diffuse wheezing CVS: good distal perfusion x 4, no pitting edema GI: soft, NTTP, ND, no hepatosplenomegaly : no suprapubic tenderness, no CVAT, licea catheter not present MSK: no clubbing, no cyanosis, no noted contractures of extremities Skin: no noted rashes, petechiae; temperature of skin is appropriate Neuro: moving all extremities without signs of weakness, CN II-XII intact Psych: cooperative, euthymic mood, insight and judgment intact Hospital Course: 52-year-old male with medical history of COPD, active smoker, opiate abuse, asthma, presented for evaluation of dyspnea. In the emergency room, patient was afebrile, 120/70, heart rate 80, 97% on 2 L of nasal cannula. CBC shows mild anemia to 12.9. Basic metabolic panel shows sodium of 129, CO2 of 21. Liver function test show AST of 79, ALT of 223. Influenzinum a was positive, influenza B was negative, RSV was negative, COVID was negative. EKG de monstrated normal sinus rhythm with left axis deviation, low voltage EKG. Chest x-ray demonstrates findings of diffuse pulmonary infiltrates. CT of the chest redemonstrates findings of diffuse pulmonary infiltrates. Assessment/plan: Acute Hypoxemic Respiratory Failure Asthma/COPD Exacerbation Influenza A -admit to observation -pulmonology consult -duadambs QID + PRN -tamiflu -solumedrol -ceftriaxone; MRSA nares is pending -azithromycin, vancomycin discontinued Opiate Abuse -continue suboxone -HIV is negative, hepatitis panel pending Active Smoker -nicotine lozenges PRN Pt is Full Code Objective - Vital Signs Vital signs: Vital Signs Temp 97.7 F 07/14/23 07:00 Pulse 54 L 07/14/23 09:15 Resp 18 07/14/23 08:00 BP 156/92 07/14/23 07:00 Pulse Ox 98 07/14/23 08:58 FiO2 Intake & Output 07/13/23 07/14/23 07/14/23 18:59 06:59 18:59 Other: # Voids 3 2 - Labs CBC & Chem 7: 07/14/23 06:39 07/14/23 06:39 Labs: Abnormal Lab Results - Last 24 Hours (Table) 07/13/23 07/14/23 07/14/23 Range/Units 07:11 06:39 06:39 RBC 3.53 L 4.18 L (4.40-5.60) X 10*6/uL Hgb 10.9 L (13.0-17.0) g/dL Hct 32.6 L (39.6-50.0) % RDW 15.9 H (11.5-14.5) % MPV 13.0 H (9.5-12.2) FL Lymphocytes # 0.51 L (0.90-5.00) X 10*3/uL Lymphocytes # (Manual) 0.88 L (1.0-4.8) k/uL Eosinophils # 0 L (0.04-0.35) X 10*3/uL Chloride 110 H (98-107) mmol/L Carbon Dioxide 18 L (22-30) mmol/L BUN 28 H (9-20) mg/dL Creatinine 0.48 L (0.66-1.25) mg/dL Glucose 122 H (74-99) mg/dL Calcium 8.2 L (8.4-10.2) mg/dL Microbiology - Last 24 Hours (Table) 07/12/23 11:46 Gram Stain - Final Sputum Sputum Culture - Final 07/12/23 02:30 Nasal Screen MRSA/MSSA - Final Nasal Swab
--- NOTE | 2023-07-14 13:01 | P.PN ---
Subjective Progress Note Date: 07/14/23 This is a 52-year-old male patient who came from [place] for some cough and shortness of breath and acute hypoxic respiratory failure. Patient was diagnosed having an acute influenza A infection. The patient lives in [place] and he has chronic opiate addiction with IV heroin and fentanyl. He was at [place] for the past 7 days undergoing detoxification he was being treated with Suboxone 8 mg twice a day. The patient started getting ill, had diffuse bodyaches and chills and fatigue and tiredness and headaches along with some cough and increased shortness of breath. He is also felt feverish and he was reporting a temperature. He has multiple sick contacts at the rehab facility. He came into the emergency department and the patient tested positive for influenza A, influenza B RSV and COVID-19 were negative. Blood work showed a white cell count of 4.9 and a hemoglobin of 12.9 and a platelet count of 152. Sodium is at 129, BUN is 17 with a creatinine of 0.48. Glucose 123. AST is 79, ALT is 223, bilirubin is 1.2. The CAT scan of the chest was completed and the patient has lower lobe bilateral consolidations consistent with pneumonia. In addition, there is mild bilateral hilar and subcarinal lymphadenopathy. Noted the consolidation are present in the posterior segments of the lower lobes bilaterally. The patient denies having any episodes of aspiration. No history of alcoholism. He is a chronic smoker. No altered mentation. Concerned that he is going to withdrawal from opiates during his current hospital stay. At the time of my evaluation, the patient was alert and awake and communicating. On today's evaluation of 07/12/2023, the patient is being seen for a follow-up. The patient has extensive bilateral lower lobe pneumonia. Repeat chest x-ray was done and the patient was found to have similar findings of bilateral patchy airspace disease more so in the lower lobes bilaterally involving the posterior segments. His procalcitonin level was elevated at 9.5. Patient currently on Rocephin and Zithromax. Legionella urine antigen was sent. White cell count of 4.4 with a hemoglobin of 11 and a platelet count of 152. Rest of electrolytes are all stable. The patient remains on 2 L of oxygen by nasal cannula and his pulse ox is in order of 98%. He has a congested cough. The sputum sample will be collected today. On today's evaluation of 07/13/2023, the patient is doing slightly better compared to yesterday. Remains on 2 L of oxygen by nasal cannula. White cell count is at 5 with a hemoglobin 10.6 and a platelet count of 166. BUN is at 23 with a creatinine of 0.4 and sodium levels at 135. The patient has no significant respiratory distress. Hemodynamically stable. Sputum has been collected and the results are still pending for now. Chest x-ray from yesterday was still showing persistent bilateral pulmonary filtrates. On today's evaluation of 07/14/2023, the patient continues to have cough and congestion. Shortness of breath still present. He is somewhat into room air oxygen 2 L/min nasal cannula. Chest x-ray is showing worsening of the right lung opacity and mild improvement on the left. The patient otherwise has no other new complaints.'s rhythm is send for cultures and analysis and the results are still pending and the patient is currently on Rocephin. Vancomycin was discontinued as the sputum sample came back negative for any MRSA. Objective - Vital Signs Vital signs: Vital Signs Temp 97.7 F 07/14/23 07:00 Pulse 54 L 07/14/23 09:15 Resp 18 07/14/23 08:00 BP 156/92 07/14/23 07:00 Pulse Ox 98 07/14/23 08:58 FiO2 Intake & Output 07/13/23 07/14/23 07/14/23 18:59 06:59 18:59 Other: # Voids 3 2 - Exam The patient appeared well nourished and normally developed. The patient is currently on 3 L of oxygen nasal cannula. Breathing is calm and comfortable and the patient's breathing is nonlabored at this point in time. Vital signs as documented. Head exam is unremarkable. No scleral icterus or corneal arcus noted. Neck is without jugular venous distension, thyromegaly, or carotid bruits. Carotid upstrokes are brisk bilaterally. Lungs are clear to auscultation and percussion. Cardiac exam reveals the PMI to be normally sized and situated. Rhythm is regular. First and second heart sounds normal. No murmurs, rubs or gallops. Abdominal exam reveals normal bowel sounds, no masses, no organomegaly and no aortic enlargement. Extremities are nonedematous and both femoral and pedal pulses are normal. Examination of the skin revealed no evidence of sign ificant rashes, suspicious appearing nevi or other concerning lesions. Neurologically, the patient is awake and alert and the patient does not have any focal neurological deficit. Cranial nerves are essentially intact. - Labs CBC & Chem 7: 07/14/23 06:39 07/14/23 06:39 Labs: Abnormal Lab Results - Last 24 Hours (Table) 07/13/23 07/14/23 07/14/23 Range/Units 07:11 06:39 06:39 RBC 3.53 L 4.18 L (4.40-5.60) X 10*6/uL Hgb 10.9 L (13.0-17.0) g/dL Hct 32.6 L (39.6-50.0) % RDW 15.9 H (11.5-14.5) % MPV 13.0 H (9.5-12.2) FL Lymphocytes # 0.51 L (0.90-5.00) X 10*3/uL Eosinophils # 0 L (0.04-0.35) X 10*3/uL Chloride 110 H (98-107) mmol/L Carbon Dioxide 18 L (22-30) mmol/L BUN 28 H (9-20) mg/dL Creatinine 0.48 L (0.66-1.25) mg/dL Glucose 122 H (74-99) mg/dL Calcium 8.2 L (8.4-10.2) mg/dL Microbiology - Last 24 Hours (Table) 07/12/23 02:30 Nasal Screen MRSA/MSSA - Final Nasal Swab 07/12/23 11:46 Gram Stain - Preliminary Sputum Assessment and Plan Plan: Acute influenza A infection with possible viral pneumonia secondary influenza. The patient has lower lobe posterior segment bilateral pulmonary consolidation. Superinfection with bacterial pneumonia and/or aspiration cannot be completely ruled out. Patient checked positive for influenza A. Started on Tamiflu. Symptoms started approximately 3 to 4 days ago. Bilateral lower lobe pneumonia, likely bacterial on top of his viral infection. The patient is currently on Rocephin and Zithromax. He has history of IVDA. He was undergoing rehabilitation at [place]. No previous history of staph infection. Procalcitonin level is elevated. Chest x-ray findings are essentially stable. Legionella urine antigen is pending. Acute hypoxic respiratory failure currently on 2 L of oxygen by nasal cannula, transition to room air oxygen Opiate addiction in the form of heroin and fentanyl, undergoing rehabilitation at [place] Chronic smoker Abnormal LFTs with elevation in ALT and to lesser extent AST. Normal bilirubin. Plan Chest x-ray still showing bilateral consolidation, slightly worse on the right improved on the left Sputum Gram stain and culture has been negative Repeat chest x-ray in the morning was done and that a images were reviewed Continue same treatment for now. Titrate oxygen flow to maintain saturation above 90%. Continue Tamiflu Continue Rocephin DuoNeb [facility] Continue Suboxone 8 mg twice a day IV fluids Check hepatitis profile due to his previous history of IVDA and abnormal LFTs Will follow
[2023-07-15] MEDS ORDERED: VANCOMYCIN TROUGH DUE 1 EACH MISC MISCELLANE ONE (06:00)
--- NOTE | 2023-07-15 11:30 | P.PN ---
Subjective Progress Note Date: 07/15/23 No new complaints today. Breathing is improved, remains on room air. Has productive cough with brownish sputum production. Sputum Cx pending. Gen: in no apparent distress, resting comfortably in bed Eyes: PERRL, no scleral injection or icterus HENT: normocephalic, atraumatic, good hearing acuity, moist mucous membranes Neck: no tracheal deviation, full range of motion Resp: good air exchange, breathing comfortably with no accessory muscle use, no tactile fremitus, diffuse wheezing CVS: good distal perfusion x 4, no pitting edema GI: soft, NTTP, ND, no hepatosplenomegaly : no suprapubic tenderness, no CVAT, licea catheter not present MSK: no clubbing, no cyanosis, no noted contractures of extremities Skin: no noted rashes, petechiae; temperature of skin is appropriate Neuro: moving all extremities without signs of weakness, CN II-XII intact Psych: cooperative, euthymic mood, insight and judgment intact Hospital Course: 52-year-old male with medical history of COPD, active smoker, opiate abuse, asthma, presented for evaluation of dyspnea. In the emergency room, patient was afebrile, 120/70, heart rate 80, 97% on 2 L of nasal cannula. CBC shows mild anemia to 12.9. Basic metabolic panel shows sodium of 129, CO2 of 21. Liver function test show AST of 79, ALT of 223. Influenzinum a was positive, influenza B was negative, RSV was negative, COVID was negative. EKG de monstrated normal sinus rhythm with left axis deviation, low voltage EKG. Chest x-ray demonstrates findings of diffuse pulmonary infiltrates. CT of the chest redemonstrates findings of diffuse pulmonary infiltrates. Assessment/plan: Acute Hypoxemic Respiratory Failure Asthma/COPD Exacerbation Influenza A Community Acquired Pneumonia -admit to observation -pulmonology consult -duonebs QID + PRN -tamiflu -solumedrol -ceftriaxone; MRSA nares is pending -azithromycin, vancomycin discontinued -repeat CXR today Opiate Abuse -continue suboxone -HIV is negative, hepatitis panel pending Active Smoker -nicotine lozenges PRN Pt is Full Code Objective - Vital Signs Vital signs: Vital Signs Temp 98.0 F 07/15/23 06:55 Pulse 64 07/15/23 08:45 Resp 16 07/15/23 06:55 BP 149/82 07/15/23 06:55 Pulse Ox 96 07/15/23 06:55 FiO2 Intake & Output 07/14/23 07/15/23 07/15/23 18:59 06:59 18:59 Intake Total 1900 Balance 1900 Intake: Intake, IV Titration 300 Amount Vancomycin 1,250 mg In 250 Sodium Chloride 0.9% 250 ml @ 125 mls/hr IVPB Q8H [facility] Rx#:[id number] cefTRIAXone 2 gm In 50 Sodium Chloride 0.9% 50 ml @ 100 mls/hr IVPB Q24H ON LICENSE OF [facility] Rx#:[id number] Oral 1600 Other: # Voids 5 - Labs CBC & Chem 7: 07/14/23 06:39 07/14/23 06:39 Labs: Microbiology - Last 24 Hours (Table) 07/12/23 11:46 Gram Stain - Final Sputum Sputum Culture - Final
--- NOTE | 2023-07-15 13:06 | XR ---
EXAMINATION TYPE: XR chest 1V portable DATE OF EXAM: 07/15/2023 COMPARISON: 07/11/2023-07/14/2023 INDICATION: Pneumonia TECHNIQUE: Single frontal view of the chest is obtained. FINDINGS: The heart size is normal. The pulmonary vasculature is normal. Increased diffuse lung markings are present. Some platelike atelectasis at the left costophrenic angl e. IMPRESSION: 1. Diffuse increased lung markings similar comparison studies. 2. Atelectasis left costophrenic angle
--- NOTE | 2023-07-15 16:12 | P.PN ---
Subjective Progress Note Date: 07/15/23 This is a 52-year-old male patient who came from [place] for some cough and shortness of breath and acute hypoxic respiratory failure. Patient was diagnosed having an acute influenza A infection. The patient lives in [place] and he has chronic opiate addiction with IV heroin and fentanyl. He was at [place] for the past 7 days undergoing detoxification he was being treated with Suboxone 8 mg twice a day. The patient started getting ill, had diffuse bodyaches and chills and fatigue and tiredness and headaches along with some cough and increased shortness of breath. He is also felt feverish and he was reporting a temperature. He has multiple sick contacts at the rehab facility. He came into the emergency department and the patient tested positive for influenza A, influenza B RSV and COVID-19 were negative. Blood work showed a white cell count of 4.9 and a hemoglobin of 12.9 and a platelet count of 152. Sodium is at 129, BUN is 17 with a creatinine of 0.48. Glucose 123. AST is 79, ALT is 223, bilirubin is 1.2. The CAT scan of the chest was completed and the patient has lower lobe bilateral consolidations consistent with pneumonia. In addition, there is mild bilateral hilar and subcarinal lymphadenopathy. Noted the consolidation are present in the posterior segments of the lower lobes bilaterally. The patient denies having any episodes of aspiration. No history of alcoholism. He is a chronic smoker. No altered mentation. Concerned that he is going to withdrawal from opiates during his current hospital stay. At the time of my evaluation, the patient was alert and awake and communicating. On today's evaluation of 07/12/2023, the patient is being seen for a follow-up. The patient has extensive bilateral lower lobe pneumonia. Repeat chest x-ray was done and the patient was found to have similar findings of bilateral patchy airspace disease more so in the lower lobes bilaterally involving the posterior segments. His procalcitonin level was elevated at 9.5. Patient currently on Rocephin and Zithromax. Legionella urine antigen was sent. White cell count of 4.4 with a hemoglobin of 11 and a platelet count of 152. Rest of electrolytes are all stable. The patient remains on 2 L of oxygen by nasal cannula and his pulse ox is in order of 98%. He has a congested cough. The sputum sample will be collected today. On today's evaluation of 07/13/2023, the patient is doing slightly better compared to yesterday. Remains on 2 L of oxygen by nasal cannula. White cell count is at 5 with a hemoglobin 10.6 and a platelet count of 166. BUN is at 23 with a creatinine of 0.4 and sodium levels at 135. The patient has no significant respiratory distress. Hemodynamically stable. Sputum has been collected and the results are still pending for now. Chest x-ray from yesterday was still showing persistent bilateral pulmonary filtrates. On today's evaluation of 07/14/2023, the patient continues to have cough and congestion. Shortness of breath still present. He is somewhat into room air oxygen 2 L/min nasal cannula. Chest x-ray is showing worsening of the right lung opacity and mild improvement on the left. The patient otherwise has no o ther new complaints.'s rhythm is send for cultures and analysis and the results are still pending and the patient is currently on Rocephin. Vancomycin was discontinued as the sputum sample came back negative for any MRSA. The patient is seen today July 15, 2023 in follow-up on the regular medical floor. He is currently sitting up in bed. Awake and alert in no acute distress. He is maintaining good O2 saturations in the 90s on room air. He is still quite rhonchorous. He has significant cough and congestion. He is continued on azithromycin and Rocephin. He is procalcitonin was 9.52. He is continue on DuoNeb ventilations, Symbicort. No new labs today. Sputum culture revealed no growth. Objective - Vital Signs Vital signs: Vital Signs Temp 97.9 F 07/15/23 14:00 Pulse 68 07/15/23 15:58 Resp 16 07/15/23 14:00 BP 132/69 07/15/23 14:00 Pulse Ox 96 07/15/23 14:00 FiO2 Intake & Output 07/14/23 07/15/23 07/15/23 18:59 06:59 18:59 Intake Total 0 Balance 1899 Intake: Intake, IV Titration 300 Amount Vancomycin 1,250 mg In 250 Sodium Chloride 0.9% 250 ml @ 125 mls/hr IVPB Q8H [facility] Rx#:[id number] cefTRIAXone 2 gm In 50 Sodium Chloride 0.9% 50 ml @ 100 mls/hr IVPB Q24H [facility] Rx#:[id number] Oral 1600 Other: # Voids 5 - Exam GENERAL EXAM: Alert, pleasant 52-year-old male, on room air, fairly comfortable in no apparent distress. HEAD: Normocephalic. EYES: Normal reaction of pupils, equal size. NOSE: Clear with pink turbinates. THROAT: No erythema or exudates. NECK: No masses, no JVD. CHEST: No chest wall deformity. LUNGS: Equal air entry with bilateral scattered rhonchi. CVS: S1 and S2 normal with no audible murmur, regular rhythm. ABDOMEN: No hepatosplenomegaly, normal bowel sounds, no guarding or rigidity. SPINE: No scoliosis or deformity SKIN: No rashes CENTRAL NERVOUS SYSTEM: No focal deficits, tone is normal in all 4 extremities. EXTREMITIES: There is no peripheral edema. No clubbing, no cyanosis. Peripheral pulses are intact. - Labs CBC & Chem 7: 07/14/23 06:39 07/14/23 06:39 Assessment and Plan Assessment: Acute influenza A infection with possible viral pneumonia secondary influenza. Continue on Tamiflu. Bilateral lower lobe pneumonia, likely bacterial on top of his viral infection. The patient is currently on Rocephin and Zithromax. He has history of IVDA. He was undergoing rehabilitation at [place]. No previous history of staph infection. Procalcitonin level is elevated. Chest x-ray findings are essentially stable. Legionella urine antigen is negative. Acute hypoxic respiratory failure currently on 2 L of oxygen by nasal cannula, transition to room air oxygen Opiate addiction in the form of heroin and fentanyl, undergoing rehabilitation at [place] Chronic smoker Abnormal LFTs with elevation in ALT and to lesser extent AST. Normal bilirubin. Plan: The patient was seen and evaluated Medications reviewed Improved but not quite back to baseline Continue bronchodilators, steroids Continue antibiotics Continue Tamiflu Increase his activity as tolerated We will continue to follow I have personally seen and examined the patient, performed the documentation and the assessment and plan as written. Number of minutes spent on the visit: 10.
[2023-07-15] MEDS: polyethylene glycoL 3350 17 GM POWD.PACK PO SCH (16:26)
[2023-07-15] MEDS: BUDESONIDE 1 MG/2 ML NEBU INHALATION SCH (20:36)
[2023-07-15] MEDS: FORMOTEROL FUMARATE 20 MCG/2 ML NEBU INHALATION SCH (20:36)
[2023-07-15] MEDS: SENNOSIDES-DOCUSATE SODIUM 1 EACH TAB PO SCH (21:29)
[2023-07-16 01:57] VITALS: TEMP 97.7
[2023-07-16 07:31] VITALS: BP 138/79; PULSE 57; RESP 18
--- NOTE | 2023-07-16 12:05 | P.DS ---
Providers Date of admission: 07/11/23 10:54 Expected date of discharge: 07/16/23 Attending physician: Allie Cross DO Consults: 07/11/23 14:10 Consult Physician Routine Consulting Provider: Jefferson Ybarra Consult Reason/Comments: flu, copd, possible pneumonia or impending ARDS Do you want consulting provider notified?: Yes Primary care physician: Stated None Hospital Course: 52-year-old male with medical history of COPD, active smoker, opiate abuse, asthma, presented for evaluation of dyspnea. In the emergency room, patient was afebrile, 120/70, heart rate 80, 97% on 2 L of nasal cannula. CBC shows mild anemia to 12.9. Basic metabolic panel shows sodium of 129, CO2 of 21. Liver function test show AST of 79, ALT of 223. Influenza A was positive, influenza B was negative, RSV was negative, COVID was negative. EKG demonstrated normal sinus rhythm with left axis deviation, low voltage EKG. Chest x-ray demonstrates findings of diffuse pulmonary infiltrates. CT of the chest redemonstrates findings of diffuse pulmonary infiltrates. Started on Rocephin and Azithromycin for concerns of PNA. Started on Tamiflu for treatment for Flu A. Started on bronchodilators and Solumedrol. Clinically improved. Completed course of Tamiflu, Rocephin and Azithromycin. 07/15 Patient was seen and examined. Significant improvement in breathing. Plans for discharge back to [facility] on Tessalon PRN, Prednisone and Zpack. General: non toxic, no distress, appears at stated age Derm: warm, dry Head: atraumatic, normocephalic, symmetric Eyes: EOMI, no lid lag, anicteric sclera Mouth: no lip lesion, mucus membranes moist Cardiovascular: S1S2 reg, no murmur Lungs: CTA bilateral, no rhonchi, no rales , no accessory muscle use Ext: no gross muscle atrophy, no edema, no contractures Neuro: no focal neuro deficits Psych: Alert, oriented, appropriate affect Discharge Diagnosis: Acute hypoxemic respiratory failure Asthma/COPD Exacerbation Influenza A Community acquired pneumonia Opiate abuse Smoker This complex discharge took 35 minutes to complete. Patient Condition at Discharge: Stable Plan - Discharge Summary Discharge Rx Participant: Yes New Discharge Prescriptions: New Benzonatate [Tessalon Perles] 100 mg PO TID PRN #30 cap PRN Reason: Cough predniSONE See Taper PO DIRECTED #30 tab Azithromycin [Zithromax Tri-Froy (3 tabs)] 500 mg PO DAILY 3 Days #3 tab Continue traZODone HCL [Desyrel] 50 - 150 mg PO HS PRN PRN Reason: Insomnia ondansetron HCL [Zofran] 8 mg PO Q6H PRN PRN Reason: Nausea And Vomiting guaiFENesin [guaiFENesin Oral Solution] 10 mg PO Q4H PRN PRN Reason: Cough Mag Hydrox/Aluminum Hyd/Simeth [Mylanta Maximum Strength Liq] 30 ml PO Q4H PRN PRN Reason: Gi Upset Magnesium Hydroxide [Milk of Magnesia] 2,400 mg PO BID PRN PRN Reason: Constipation Loperamide HCl [Imodium A-D] 4 mg PO QID PRN PRN Reason: Loose Stool cloNIDine HCL [Catapres] 0.1 mg PO Q4H PRN PRN Reason: Anxiety Albuterol Sulfate [Ventolin HFA] 2 puff INHALATION RT-QID PRN #1 each PRN Reason: Shortness Of Breath Acetaminophen Tab [Tylenol] 650 mg PO Q4H PRN PRN Reason: Fever And/ Or Pain Thiamine [Vitamin B-1] 100 mg PO DAILY Multivitamins, Thera [Multivitamin (formulary)] 1 tab PO DAILY Ibuprofen [Motrin Ib] 600 mg PO Q6H PRN PRN Reason: Fever And/ Or Pain Melatonin 10 mg PO HS Hyoscyamine Sulfate [Levsin] 0.125 mg PO QID PRN PRN Reason: Gi Upset Docusate [Colace] 100 mg PO BID PRN PRN Reason: Constipation Chlorpheniramine Maleate [Chlor-Trimeton] 4 mg PO Q4H PRN PRN Reason: Allergy Symptoms Calcium/Magnesium/Zinc/Vitamin D 1 tab PO TID PRN PRN Reason: Cramping Buprenorphine HCl/Naloxone HCl [Suboxone 8 mg-2 mg Sl Film] 1 film SL BID Discharge Medication List Acetaminophen Tab [Tylenol] 650 mg PO Q4H PRN 07/11/23 [History] Buprenorphine HCl/Naloxone HCl [Suboxone 8 mg-2 mg Sl Film] 1 film SL BID 07/11/23 [History] Calcium/Magnesium/Zinc/Vitamin D 1 tab PO TID PRN 07/11/23 [History] Chlorpheniramine Maleate [Chlor-Trimeton] 4 mg PO Q4H PRN 07/11/23 [History] Docusate [Colace] 100 mg PO BID PRN 07/11/23 [History] Hyoscyamine Sulfate [Levsin] 0.125 mg PO QID PRN 07/11/23 [History] Ibuprofen [Motrin Ib] 600 mg PO Q6H PRN 07/11/23 [History] Loperamide HCl [Imodium A-D] 4 mg PO QID PRN 07/11/23 [History] Mag Hydrox/Aluminum Hyd/Simeth [Mylanta Maximum Strength Liq] 30 ml PO Q4H PRN 07/11/23 [History] Magnesium Hydroxide [Milk of Magnesia] 2,400 mg PO BID PRN 07/11/23 [History] Melatonin 10 mg PO HS 07/11/23 [History] Multivitamins, Thera [Multivitamin (formulary)] 1 tab PO DAILY 07/11/23 [History] Thiamine [Vitamin B-1] 100 mg PO DAILY 07/11/23 [History] cloNIDine HCL [Catapres] 0.1 mg PO Q4H PRN 07/11/23 [History] guaiFENesin [guaiFENesin Oral Solution] 10 mg PO Q4H PRN 07/11/23 [History] ondansetron HCL [Zofran] 8 mg PO Q6H PRN 07/11/23 [History] traZODone HCL [Desyrel] 50 - 150 mg PO HS PRN 07/11/23 [History] Albuterol Sulfate [Ventolin HFA] 2 puff INHALATION RT-QID PRN #1 each 07/16/23 [Rx] Azithromycin [Zithromax Tri-Froy (3 tabs)] 500 mg PO DAILY 3 Days #3 tab 07/16/23 [Rx] Benzonatate [Tessalon Perles] 100 mg PO TID PRN #30 cap 07/16/23 [Rx] predniSONE See Taper PO DIRECTED #30 tab 07/16/23 [Rx] Follow up Appointment(s)/Referral(s): None,Stated [Primary Care Provider] - 1-2 days (Please call a primary care provider for follow-up appointment.) Patient Instructions/Handouts: Influenza (DC), COPD (Chronic Obstructive Pulmonary Disease) (DC) Activity/Diet/Wound Care/Special Instructions: Please call [facility] on discharge for transportation: #[phone] Discharge Disposition: HOME SELF-CARE
--- NOTE | 2023-07-16 14:54 | P.PN ---
Subjective Progress Note Date: 07/16/23 This is a 52-year-old male patient who came from [place] for some cough and shortness of breath and acute hypoxic respiratory failure. Patient was diagnosed having an acute influenza A infection. 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 He was at [place] for the past 7 days undergoing detoxification he was being treated with Suboxone 8 mg twice a day. The patient started getting ill, had diffuse bodyaches and chills and fatigue and tiredness and headaches along with some cough and increased shortness of breath. He is also felt feverish and he was reporting a temperature. He has multiple sick contacts at the rehab facility. He came into the emergency department and the patient tested positive for influenza A, influenza B RSV and COVID-19 were negative. Blood work showed a white cell count of 4.9 and a hemoglobin of 12.9 and a platelet count of 152. Sodium is at 129, BUN is 17 with a creatinine of 0.48. Glucose 123. AST is 79, ALT is 223, bilirubin is 1.2. The CAT scan of the chest was completed and the patient has lower lobe bilateral consolidations consistent with pneumonia. In addition, there is mild bilateral hilar and subcarinal lymphadenopathy. Noted the consolidation are present in the posterior segments of the lower lobes bilaterally. The patient denies having any episodes of aspiration. No history of alcoholism. He is a chronic smoker. No altered mentation. Concerned that he is going to withdrawal from opiates during his current hospital stay. At the time of my evaluation, the patient was alert and awake and communicating. On today's evaluation of 07/12/2023, the patient is being seen for a follow-up. The patient has extensive bilateral lower lobe pneumonia. Repeat chest x-ray was done and the patient was found to have similar findings of bilateral patchy airspace disease more so in the lower lobes bilaterally involving the posterior segments. His procalcitonin level was elevated at 9.5. Patient currently on Rocephin and Zithromax. Legionella urine antigen was sent. White cell count of 4.4 with a hemoglobin of 11 and a platelet count of 152. Rest of electrolytes are all stable. The patient remains on 2 L of oxygen by nasal cannula and his pulse ox is in order of 98%. He has a congested cough. The sputum sample will be collected today. On today's evaluation of 07/13/2023, the patient is doing slightly better compared to yesterday. Remains on 2 L of oxygen by nasal cannula. White cell count is at 5 with a hemoglobin 10.6 and a platelet count of 166. BUN is at 23 with a creatinine of 0.4 and sodium levels at 135. The patient has no significant respiratory distress. Hemodynamically stable. Sputum has been collected and the results are still pending for now. Chest x-ray from yesterday was still showing persistent bilateral pulmonary filtrates. On today's evaluation of 07/14/2023, the patient continues to have cough and congestion. Shortness of breath still present. He is somewhat into room air oxygen 2 L/min nasal cannula. Chest x-ray is showing worsening of the right lung opacity and mild improvement on the left. The patient otherwise has no o ther new complaints.'s rhythm is send for cultures and analysis and the results are still pending and the patient is currently on Rocephin. Vancomycin was discontinued as the sputum sample came back negative for any MRSA. The patient is seen today July 15, 2023 in follow-up on the regular medical floor. He is currently sitting up in bed. Awake and alert in no acute distress. He is maintaining good O2 saturations in the 90s on room air. He is still quite rhonchorous. He has significant cough and congestion. He is continued on azithromycin and Rocephin. He is procalcitonin was 9.52. He is continue on DuoNeb ventilations, Symbicort. No new labs today. Sputum culture revealed no growth. The patient is seen today July 16, 2023 in follow-up on the regular medical floor. He is currently sitting up in a chair. Awake and alert in no acute distress. Maintaining good O2 saturations in the 90s on room air. He remains on DuoNeb ventilations, Pulmicort and Perforomist inhalations, Solu-Medrol. Has been up ambulating without any acute distress. Objective - Vital Signs Vital signs: Vital Signs Temp 97.7 F 07/16/23 07:17 Pulse 57 L 07/16/23 07:17 Resp 18 07/16/23 09:03 BP 138/79 07/16/23 07:17 Pulse Ox 95 07/16/23 07:17 FiO2 Intake & Output 07/15/23 07/16/23 07/16/23 18:59 06:59 18:59 Intake Total 640 1200 Balance 640 1200 Intake: Oral 640 1200 Other: Voiding Method Toilet Toilet # Voids 4 4 - Exam GENERAL EXAM: Alert, 52-year-old male, on room air, up in his room, comfortable in no apparent distress. HEAD: Normocephalic. EYES: Normal reaction of pupils, equal size. NOSE: Clear with pink turbinates. THROAT: No erythema or exudates. NECK: No masses, no JVD. CHEST: No chest wall deformity. LUNGS: Equal air entry with bilateral scattered rhonchi. CVS: S1 and S2 normal with no audible murmur, regular rhythm. ABDOMEN: No hepatosplenomegaly, normal bowel sounds, no guarding or rigidity. SPINE: No scoliosis or deformity SKIN: No rashes CENTRAL NERVOUS SYSTEM: No focal deficits, tone is normal in all 4 extremities. EXTREMITIES: There is no peripheral edema. No clubbing, no cyanosis. Peripheral pulses are intact. - Labs CBC & Chem 7: 07/14/23 06:39 07/14/23 06:39 Labs: Microbiology - Last 24 Hours (Table) 07/15/23 17:14 Gram Stain - Preliminary Sputum Assessment and Plan Assessment: Acute influenza A infection with possible viral pneumonia secondary influenza. Continue on Tamiflu. Bilateral lower lobe pneumonia, likely bacterial on top of his viral infection. The patient is currently on Rocephin and Zithromax. He has history of IVDA. He was undergoing rehabilitation at [place]. No previous history of staph infection. Procalcitonin level is elevated. Chest x-ray findings are essentially stable. Legionella urine antigen is negative. Acute hypoxic respiratory failure currently on 2 L of oxygen by nasal cannula, transition to room air oxygen Opiate addiction in the form of heroin and fentanyl, undergoing rehabilitation at [place] Chronic smoker Abnormal LFTs with elevation in ALT and to lesser extent AST. Normal bilirubin. Plan: The patient was seen and evaluated Medications reviewed Stable and on room air Cleared for discharge Complete a prednisone taper Continue bronchodilators Educated regarding the importance of complete smoking cessation Plan is to return to [facility] I have personally seen and examined the patient, performed the documentation and the assessment and plan as written. Number of minutes spent on the visit: 10.
[2023-07-17] MEDS ORDERED: predniSONE 20 MG TAB PO SCH (09:00)
== END 2023-07-16 12:23 | disposition home or self-care (01) ==
LOC: EC 08:23 → 4SSUR 10:53 → OBSVTOIN 10:54 → INTOOBSV 10:54 → 4SSUR 17:22
PROVIDERS: ADMIT Internal Medicine; ATTEND Internal Medicine
DX: J44.0 Chronic obstructive pulmonary disease with (acute) lower respiratory infection (principal); J18.8 Other pneumonia, unspecified organism; J10.08 Influenza due to other identified influenza virus with other specified pneumonia; J96.01 Acute respiratory failure with hypoxia; J44.1 Chronic obstructive pulmonary disease with (acute) exacerbation; J45.901 Unspecified asthma with (acute) exacerbation; R74.01 Elevation of levels of liver transaminase levels; D64.9 Anemia, unspecified; F11.20 Opioid dependence, uncomplicated; F17.200 Nicotine dependence, unspecified, uncomplicated; Z20.9 Contact with and (suspected) exposure to unspecified communicable disease; Z11.52 Encounter for screening for COVID-19; Z11.59 Encounter for screening for other viral diseases; Z79.899 Other long term (current) drug therapy; Z88.0 Allergy status to penicillin; Z87.898 Personal history of other specified conditions
CPT/HCPCS: 96376 ×7; 96366 ×5; 96367; 96368; 96361; 96365; 96375; 99285; 36415; 94640 ×10; 94760 ×3; 94667; 93005; 80053; 80048 ×3; 87449; 83735 ×3; 85025 ×4; 80202; 87070 ×2; 87205 ×2; 87390; 84145; 87636; 71045 ×3; 71046; 71260; G0378 ×6; J3370 ×4; J2930 ×6; J0456 ×3; J0696 ×5; Q9967